=== PATIENT | female | born 1995 | race African-American/Black ===

== ENCOUNTER → 2020-02-13 | Emergency (ER) | payer MEDICAID, OTHER ==
[~2020-02-13] VITALS: Ht 167.6 cm; Wt 54.4 kg
--- NOTE | 2020-02-13 02:05 | NUR ---
PT BIBRA C/O GENERALIZED BODY PAIN X 1 DAY. PT AAOX4, RESPIRATIONS EVEN AND UNLABORED ON RA W/ NAD NOTED. PT CONNECTED TO THE MONITOR AND POX
--- NOTE | 2020-02-13 03:05 | NUR ---
PT RESTING COMFORTABLY. VSS. NO ACUTE DISTRESS NOTED. WILL CONTINUE TO MONITOR
[2020-02-13 06:16] VITALS: BP 117/84
--- NOTE | 2020-02-13 06:16 | NUR ---
Patient medically cleared for discharge. Patient given written and verbal discharge instructions. Patient verbalizes understanding of instructions. Patient is ambulatory with steady gait. Patient given list of available shelters in surrounding area.
== END | disposition home or self-care (01) ==
LOC: ER 02:07
DX: Z60.9 Problem related to social environment, unspecified (principal); Z59.0 Homelessness